=== PATIENT | male | born 1995 | race Caucasian/White ===

== ENCOUNTER 2016-11-17 08:25 | Emergency (ER) | payer SELFPAY ==
[2016-11-17] MEDS ORDERED: PEN G BENZ 1.2M UNITS/2 ML SYR IM ONE ×2 (10:20)
== END 2016-11-17 11:31 | disposition home or self-care (01) ==
LOC: ER 08:25
DX: N48.89 Other specified disorders of penis (principal); Z20.2 Contact with and (suspected) exposure to infections with a predominantly sexual mode of transmission; F17.210 Nicotine dependence, cigarettes, uncomplicated
CPT/HCPCS: 81001; 86780; 87088; 87491; 87529; 87591; 96372